=== PATIENT | female | born 2000 | race Caucasian/White ===

== ENCOUNTER → 2024-08-11 | Outpatient (CLI) | payer MEDICAID ==
[2024-08-11 10:45] LABS: Basophils # (auto) 0.1 10 ^3/uL (0-0.2); Eosinophils # (auto) 0.1 10 ^3/uL (0-0.8); Eosinophils % (auto) 1.2 % (0.0-7.0); Hematocrit 38.4 % (36.0-46.0); Hemoglobin 13.6 g/dL (12.2-16.2); Lymphocytes # (auto) 2.2 10 ^3/uL (0.4-5.4); Lymphocytes % (auto) 21.1 % (10.0-50.0); Mean Corpuscular Hemoglobin 31.4 pg (28.0-32.0); Mean Corpuscular Hgb Conc. 35.5 g/dL (32.0-36.0); Mean Corpuscular Volume 88.4 fL (80.0-100.0); Monocytes # (auto) 0.8 10 ^3/uL (0-1.3); Monocytes % (auto) 7.8 % (0.0-12.0); Neutrophils # (auto) 7.3 10 ^3/uL (1.6-8.6); Neutrophils % (auto) 68.9 % (37.0-80.0); Platelet Count (auto) 433 10^3/uL (140-450); Red Blood Cells 4.34 10^6/uL (4.0-5.20); Red Cell Distribution Width 12.6 % (11.8-14.3); White Blood Cell 10.6 10^3/uL (4.4-10.8)
[2024-08-11 11:02] LABS: Thyroid Stimulating Hormone 1.88 uIU/mL (0.55-4.78)
[2024-08-11 11:05] LABS: Amphetamine Screen, Urine Neg (NEGATIVE)
[2024-08-11 11:07] LABS: Alanine Aminotransferase 24 U/L (7-40); Albumin 4.3 g/dL (3.2-4.8); Alkaline Phosphatase 55 U/L (46-116); Anion Gap 10 (5-15); Aspartate Aminotransferase 17 U/L (13-40); BUN/Creatinine Ratio 9.4 (10.0-20.0); Cannabinoid Screen, Urine Neg (NEGATIVE); Carbon Dioxide 22 mmol/L (20-31); Chloride 105 mmol/L (98-107); Cholesterol 176 mg/dL (< 200); Glucose 94 mg/dL (74-106); Potassium 3.7 mmol/L (3.5-5.1); Sodium 137 mmol/L (136-145); Triglycerides 122 mg/dL (< 150)
[2024-08-11 11:08] LABS: Bilirubin, Total 0.4 mg/dL (0.2-1.0); Total Protein 7.2 g/dL (5.7-8.2)
[2024-08-11 11:09] LABS: Barbiturate Scree,Urine Neg (NEGATIVE); Benzodiazephine Screen, Urine Neg (NEGATIVE); Cocaine Screen, Urine Neg (NEGATIVE); Opiate Scree,Urine Neg (NEGATIVE); Phencyclidine Screen, Urine Neg (NEGATIVE)
[2024-08-11 11:10] LABS: Blood Urea Nitrogen 5 mg/dL (9-23); HDL Cholesterol 80 mg/dL (40-59)
[2024-08-11 11:11] LABS: Beta HCG, Quantitative 113799.4 mIU/mL (1.5-4.2)
[2024-08-11 11:20] LABS: LDL Cholesterol 89 mg/dL (< 100)
[2024-08-12 10:06] LABS: RPR Non Reactive (Non Reactive)
[2024-08-13 03:06] LABS: Rubella Antibodies, IgG 1.02 index (Immune >0.99); Varicella Zoster IgG Antibody Non Reactive (Non Reactive)
[2024-08-13 04:06] LABS: Chlamydia Trachomatis, NAA Negative (Negative); Neisseria gonorrhoeae, NAA Negative (Negative)
[2024-08-13 16:06] LABS: QuantiFERON-TB Gold Plus Negative (Negative)
== END | disposition home or self-care (01) ==
LOC: LAB 09:47
PROVIDERS: ATTEND Obstetrics & Gynecology
DX: Z34.00 Encounter for supervision of normal first pregnancy, unspecified trimester (principal); Z31.430 Encounter of female for testing for genetic disease carrier status for procreative management; Z36.0 Encounter for antenatal screening for chromosomal anomalies; N39.0 Urinary tract infection, site not specified
CPT/HCPCS: 36415; 80053; 80061; 80307; 83036; 84439; 84443; 84702; 85025; 86592; 86703; 86762; 86787; 86850; 86900; 86901; 87086; 87340; 87902

== ENCOUNTER → 2024-11-18 | Outpatient (CLI) | payer MEDICAID | END | disposition home or self-care (01) | LOC: LAB 09:09 | PROVIDERS: ATTEND Obstetrics & Gynecology | DX: Z34.00 Encounter for supervision of normal first pregnancy, unspecified trimester (principal); Z3A.00 Weeks of gestation of pregnancy not specified | CPT/HCPCS: 82951 ==

== ENCOUNTER 2024-12-17 09:06 | Observation (INO) | payer MEDICAID ==
[2024-12-17] MEDS ORDERED: PREN-96 PO (09:59)
--- NOTE | 2024-12-17 10:07 | DVH ---
BIOPHYSICAL PROFILE HISTORY: GDMA1 Comparison Study: None TECHNIQUE: Multiple real-time grayscale sonographic images through the gravid uterus of the fetus wi th duplex Doppler color flow and M-mode spectral analysis FINDINGS: BIOPHYSICAL PROFILE: breathing score: 2 movement score: 2 tone score: 2 Quantitative ANATOLY score: 2 (ANATOLY: 12.1 Cm.) Total score: 8 The cervix is not visualized Single live fetus in cephalic presentation. heart rate 150 beats per minute. Posterior placenta without previa or abruption. Possible accessory placental lobe seen anteriorly. IMPRESSION: Biophysical profile score: 8
--- NOTE | 2024-12-17 12:58 | DVHDS2 ---
Physician Discharge Progress N Final Diagnosis: gdm 31wks Operations or Procedures: Operations or Procedures nst reactive reviewed,sono Condition on Discharge: Good Disposition: Home Discharge Instructions: Diet: Consistent carbohydrate Activity: No Restrictions, As Tolerated Medications: na Follow Up Care: Specialist: 4d Discharge Statement: "Patient was advised to return to the ER or call 911 if any headaches, dizziness, shortness of breath, chest pain, abdominal pain, bleeding, fevers, or worsening of medical condition. Patient was counseled about treatment plan, medications, possible side effects, patientverbalized understanding. All questions were answered to the best of my ability. This discharge took greater then 30 minutes in planning, reviewing documentation, counseling the patient, and discussing with other team members." Visit Coding OBGYN Date of Service: December 17, 2024 Billing Provider: CHEYENNE MOONEY DO ASSISTANT OPERATIONS MANAGER Common Visit Codes: [id number] OBS CARE (HIGH) ASSISTANT OPERATIONS MANAGER Procedure Codes: 47512-47- NON-STRESS TEST CHEYENNE MOONEY DO December 17, 2024 12:58
== END 2024-12-17 10:25 | disposition home or self-care (01) ==
LOC: UNDOADMOB 09:06 → LDRP 09:06
PROVIDERS: ADMIT Obstetrics & Gynecology; ATTEND Obstetrics & Gynecology
DX: O24.419 Gestational diabetes mellitus in pregnancy, unspecified control (principal); Z3A.31 31 weeks gestation of pregnancy; Z79.899 Other long term (current) drug therapy
CPT/HCPCS: 59025; 76819; 81002; 82948; 82962; G0378

== ENCOUNTER 2024-12-24 07:16 | Observation (INO) | payer MEDICAID ==
[~2024-12-24 07:16] MED LIST: PREN-96 PO
--- NOTE | 2024-12-24 11:02 | DVH ---
Procedure: US BIOPHYSICAL PROFILE 12/24/2024 09:41 AM Indication: GDMA1 Comparison: US BIOPHYSICAL PROFILE on DOS: 12/17/24 Technique: Sonogram of gravid uterus utilizing grayscale and color techniques. FINDINGS: Single living intrauterine gestation. Presentation: Cephalic Placenta: Posterior, no evidence of previa heart rate: 142 bpm ANATOLY: 13.2 cm, DVP: 3.4 cm Maternal cervix: Closed, measuring 3.6 cm in length in the transabdominal study Biophysical Profile: breathing score: 2 movement score: 2 tone: 2 Quantitative ANATOLY score: 2 Total score: 8/8 IMPRESSION: 1. Single living as above. 2. Biophysical profile score: 8/8.
--- NOTE | 2024-12-24 12:25 | DVHDS2 ---
Physician Discharge Progress N Final Diagnosis: gdm 32wks Operations or Procedures: Operations or Procedures nst reactive reviwed,sono Condition on Discharge: Good Disposition: Home Discharge Instructions: Diet: Consistent carbohydrate Activity: No Restrictions, As Tolerated Medications: na Follow Up Care: Specialist: 4d Discharge Statement: "Patient was advised to return to the ER or call 911 if any headaches, dizziness, shortness of breath, chest pain, abdominal pain, bleeding, fevers, or worsening of medical condition. Patient was counseled about treatment plan, medications, possible side effects, patientverbalized understanding. All questions were answered to the best of my ability. This discharge took greater then 30 minutes in planning, reviewing documentation, counseling the patient, and discussing with other team members." Visit Coding OBGYN Date of Service: December 24, 2024 Billing Provider: CHEYENNE MOONEY DO CARROTER Common Visit Codes: [id number] OBS CARE (HIGH) CARROTER Procedure Codes: 93481-80- NON-STRESS TEST CHEYENNE MOONEY DO December 24, 2024 12:25
== END 2024-12-24 10:43 | disposition home or self-care (01) ==
LOC: LDRP 09:09
PROVIDERS: ADMIT Obstetrics & Gynecology; ATTEND Obstetrics & Gynecology
DX: O24.419 Gestational diabetes mellitus in pregnancy, unspecified control (principal); Z3A.32 32 weeks gestation of pregnancy; Z79.899 Other long term (current) drug therapy; Z91.040 Latex allergy status
CPT/HCPCS: 59025; 76819; 81002; 82948; 82962; 94760; G0378

== ENCOUNTER 2024-12-31 05:38 | Observation (INO) | payer MEDICAID ==
[~2024-12-31] VITALS: Ht 149.9 cm; Wt 73.9 kg
--- NOTE | 2024-12-31 10:26 | DVH ---
BIOPHYSICAL PROFILE HISTORY: GDMA1 TECHNIQUE: Multiple transabdominal real-time grayscale sonographic images through the gravid uterus of the fetus with duplex Doppler color flow and M-mode spectral analysis FINDINGS: BIOPHYSICAL PROFILE: breathing score: 2 movement score: 2 tone score: 2 Quantitative ANATOLY score: 2 (ANATOLY: 14 Cm.) Total score: 8 The cervix WAS NOT SEEN Single live fetus in cephalic presentation. heart rate 154 beats per minute. Grade I posterior placenta without previa or abruption IMPRESSION: Biophysical profile score: 8/8.
--- NOTE | 2025-01-02 14:20 | DVHDS2 ---
Physician Discharge Progress N Final Diagnosis: gdm 33wks Operations or Procedures: Operations or Procedures nst reactive reviewed Condition on Discharge: Good Disposition: Home Discharge Instructions: Diet: Consistent carbohydrate Activity: Light activity Medications: na Follow Up Care: Specialist: 1w Discharge Statement: "Patient was advised to return to the ER or call 911 if any headaches, dizziness, shortness of breath, chest pain, abdominal pain, bleeding, fevers, or worsening of medical condition. Patient was counseled about treatment plan, medications, possible side effects, patientverbalized understanding. All questions were answered to the best of my ability. This discharge took greater then 30 minutes in planning, reviewing documentation , counseling the patient, and discussing with other team members." Visit Coding OBGYN Date of Service: Dec 31, 2024 Billing Provider: CHEYENNE MOONEY DO CLAIM ATTORNEY Common Visit Codes: [id number] OBS CARE (HIGH) CLAIM ATTORNEY Procedure Codes: 50530-34- NON-STRESS TEST CHEYENNE MOONEY DO Jan 02, 2025 14:19
== END 2024-12-31 10:55 | disposition home or self-care (01) ==
LOC: LDRP 09:08 → UNDOADMOB 09:08 → LDRP 09:15
PROVIDERS: ADMIT Obstetrics & Gynecology; ATTEND Obstetrics & Gynecology
DX: O24.419 Gestational diabetes mellitus in pregnancy, unspecified control (principal); Z3A.33 33 weeks gestation of pregnancy; Z79.899 Other long term (current) drug therapy
CPT/HCPCS: 59025; 76819; 81002; 82948; 94760; G0378

== ENCOUNTER 2025-01-07 06:44 | Observation (INO) | payer MEDICAID ==
--- NOTE | 2025-01-07 10:26 | DVH ---
BIOPHYSICAL PROFILE HISTORY: gdma1 TECHNIQUE: Multiple transabdominal real-time grayscale sonographic images through the gravid uterus of the fetus with duplex Doppler color flow and M-mode spectral analysis FINDINGS: BIOPHYSICAL PROFILE: breathing score: 2 movement score: 2 tone score: 2 Quantitative ANATOLY score: 2 (ANATOLY: 15 Cm.) Total score: 8 The cervix was not seen Single live fetus in cephalic presentation. heart rate 149 beats per minute. Grade II posterior placenta without previa or abruption IMPRESSION: Biophysical profile score: 8
--- NOTE | 2025-01-07 13:00 | DVHDS2 ---
Physician Discharge Progress N Final Diagnosis: IUP AT 34WKS GDM Operations or Procedures: Operations or Procedures NST REACTIVE FAUSTINA POSEY Commentary: Commentary NST REACTIVE REVFAUSTINA BUSTOS Condition on Discharge: Good Disposition: Home Discharge Instructions: Diet: Consistent carbohydrate Activity: No Restrictions, As Tolerated Medications: NA Follow Up Care: Specialist: 1W Discharge Statement: "Patient was advised to return to the ER or call 911 if any headaches, dizziness, shortness of breath, chest pain, abdominal pain, bleeding, fevers, or worsening of medical condition. Patient was counseled about treatment plan, medications, possible side effects, patientverbalized understanding. All questions were answered to the best of my ability. This discharge took greater then 30 minutes in planning, reviewing documentation, counseling the patient, and discussing with other team members." Visit Coding OBGYN Date of Service: Jan 07, 2025 Billing Provider: CHEYENNE MOONEY DO PETROLEUM PLANT OPERATOR Common Visit Codes: [id number] OBS CARE (HIGH) PETROLEUM PLANT OPERATOR Procedure Codes: 51273-39- NON-STRESS TEST CHEYENNE MOONEY DO Jan 07, 2025 13:00
== END 2025-01-07 10:27 | disposition home or self-care (01) ==
LOC: UNDOADMOB 09:03 → LDRP 09:03
PROVIDERS: ADMIT Obstetrics & Gynecology; ATTEND Obstetrics & Gynecology
DX: O24.419 Gestational diabetes mellitus in pregnancy, unspecified control (principal); Z3A.34 34 weeks gestation of pregnancy; Z79.899 Other long term (current) drug therapy
CPT/HCPCS: 59025; 76819; 81002; 82948; 82962; 94760; G0378

== ENCOUNTER 2025-01-13 10:31 | Outpatient (CLI) | payer MEDICAID ==
[2025-01-13 11:02] LABS: Basophils # (auto) 0 10 ^3/uL (0-0.2); Basophils % (auto) 0.3 % (0.0-2.0); Eosinophils # (auto) 0.1 10 ^3/uL (0-0.8); Eosinophils % (auto) 1.6 % (0.0-7.0); Hematocrit 34.8 % (36.0-46.0); Lymphocytes % (auto) 22.4 % (10.0-50.0); Mean Corpuscular Hemoglobin 30.3 pg (28.0-32.0); Mean Corpuscular Hgb Conc. 34.6 g/dL (32.0-36.0); Mean Corpuscular Volume 87.7 fL (80.0-100.0); Monocytes # (auto) 0.8 10 ^3/uL (0-1.3); Monocytes % (auto) 9.3 % (0.0-12.0); Neutrophils # (auto) 5.9 10 ^3/uL (1.6-8.6); Neutrophils % (auto) 66.4 % (37.0-80.0); Nucleated Red Blood Cells % 0.1 %; Platelet Count (auto) 342 10^3/uL (140-450); Red Blood Cells 3.97 10^6/uL (4.0-5.20); White Blood Cell 8.9 10^3/uL (4.4-10.8)
[2025-01-14 21:07] LABS: Chlamydia Trachomatis, NAA Negative (Negative); Neisseria gonorrhoeae, NAA Negative (Negative)
== END 2025-01-13 17:00 | disposition home or self-care (01) ==
LOC: LAB 10:31
PROVIDERS: ATTEND Obstetrics & Gynecology
DX: Z34.03 Encounter for supervision of normal first pregnancy, third trimester (principal); Z3A.35 35 weeks gestation of pregnancy; Z72.51 High risk heterosexual behavior; Z79.899 Other long term (current) drug therapy
CPT/HCPCS: 36415; 83036; 85025; 86780

== ENCOUNTER 2025-01-14 07:38 | Observation (INO) | payer MEDICAID ==
[~2025-01-14] VITALS: Ht 149.9 cm; Wt 73.9 kg
--- NOTE | 2025-01-14 09:50 | DVH ---
BIOPHYSICAL PROFILE HISTORY: GDMA1 TECHNIQUE: Multiple transabdominal real-time grayscale sonographic images through the gravid uterus o f the fetus with duplex doppler color flow and M-mode spectral analysis FINDINGS: BIOPHYSICAL PROFILE: breathing score: 2 movement score: 2 tone score: 2 Quantitative ANATOLY score: 2 (ANATLOY: 14.2 cm.) Total score: 8/8 Single live fetus in cephalic presentation. heart rate 145 beats per minute. Posterior placenta without previa or abruption Biophysical profile score 8/8 corresponding to an KAYLAN of 02/13/25 IMPRESSION: Biophysical profile score: 8/8
[2025-01-14] MEDS ORDERED: LACTATED RINGER'S 1,000 ML IV ONE (10:00)
[2025-01-14] MEDS: TERBUTALINE SULFATE 1 MG/ML 1ML VIAL SC SCH (10:23)
--- NOTE | 2025-01-14 14:00 | DVHDS2 ---
Physician Discharge Progress N Final Diagnosis: gdm 35wks Operations or Procedures: Operations or Procedures nst reactive reviwed,sono Condition on Discharge: Good Disposition: Home Discharge Instructions: Diet: Consistent carbohydrate Activity: Light activity Medications: na Follow Up Care: Specialist: 1w Discharge Statement: "Patient was advised to return to the ER or call 911 if any headaches, dizziness, shortness of breath, chest pain, abdominal pain, bleeding, fevers, or worsening of medical condition. Patient was counseled about treatment plan, medications, possible side effects, patientverbalized understanding. All questions were answered to the best of my ability. This discharge took greater then 30 minutes in planning, reviewing document ation, counseling the patient, and discussing with other team members." Visit Coding OBGYN Date of Service: Jan 14, 2025 Billing Provider: CHEYENNE MOONEY DO CUTTING MACHINE TENDER DECORATIVE Common Visit Codes: [id number] OBS CARE (HIGH) CUTTING MACHINE TENDER DECORATIVE Procedure Codes: 49770-22- NON-STRESS TEST CHEYENNE MOONEY DO Jan 14, 2025 14:00
== END 2025-01-14 11:38 | disposition home or self-care (01) ==
LOC: LDRP 09:05 → UNDOADMOB 09:05 → LDRP 09:12 → UNDODISOB 11:38
PROVIDERS: ADMIT Obstetrics & Gynecology; ATTEND Obstetrics & Gynecology
DX: O24.419 Gestational diabetes mellitus in pregnancy, unspecified control (principal); Z3A.35 35 weeks gestation of pregnancy; Z79.899 Other long term (current) drug therapy
CPT/HCPCS: 59025; 76819; 81002; 82948; 82962; 94760; 96360; 96361; 96372; G0378; J3105

== ENCOUNTER 2025-01-21 08:57 | Observation (INO) | payer MEDICAID ==
--- NOTE | 2025-01-21 10:06 | DVH ---
BIOPHYSICAL PROFILE HISTORY: GDMA1 Comparison Study: US BIOPHYSICAL PROFILE on DOS: 01/14/25, US BIOPHYSICAL PROFILE on DOS: 01/07/25, US BIOPHYSICAL PROFILE on DOS: 12/31/24, US BIOPHYSICAL PROFILE on DOS: 12/24/24, US BIOPHYSICAL PROFILE on DOS: 12/17/24 TECHNIQUE: Multiple real-time grayscale sonographic images through the gravid uterus of the fetus wi th duplex Doppler color flow and M-mode spectral analysis FINDINGS: BIOPHYSICAL PROFILE: breathing score: 2 movement score: 2 tone score: 2 Quantitative ANATOLY score: 2 (ANATOLY: 14.4 Cm.) Total score: 8 The cervix is not visualized Single live fetus in cephalic presentation. heart rate 161 beats per minute. Posterior placenta without previa or abruption IMPRESSION: Biophysical profile score: 8
--- NOTE | 2025-01-21 13:05 | DVHDS2 ---
Physician Discharge Progress N Final Diagnosis: 36wks gdm Operations or Procedures: Operations or Procedures nst reactive reviwed,sono Condition on Discharge: Good Disposition: Home Discharge Instructions: Diet: Consistent carbohydrate Activity: Light activity Medications: na Follow Up Care: Specialist: 2d Discharge Statement: "Patient was advised to return to the ER or call 911 if any headaches, dizziness, shortness of breath, chest pain, abdominal pain, bleeding, fevers, or worsening of medical condition. Patient was counseled about treatment plan, medications, possible side effects, patientverbalized understanding. All questions were answered to the best of my ability. This discharge took greater then 30 minutes in planning, reviewing documenta tion, counseling the patient, and discussing with other team members." Visit Coding OBGYN Date of Service: Jan 21, 2025 Billing Provider: CHEYENNE MOONEY DO MANAGER BRIDGE Common Visit Codes: [id number] OBS CARE (HIGH) MANAGER BRIDGE Procedure Codes: 26230-26- NON-STRESS TEST CHEYENNE MOONEY DO Jan 21, 2025 13:05
== END 2025-01-21 10:21 | disposition home or self-care (01) ==
LOC: LDRP 08:57
PROVIDERS: ADMIT Obstetrics & Gynecology; ATTEND Obstetrics & Gynecology
DX: O24.419 Gestational diabetes mellitus in pregnancy, unspecified control (principal); Z98.890 Other specified postprocedural states; Z79.899 Other long term (current) drug therapy; Z3A.36 36 weeks gestation of pregnancy
CPT/HCPCS: 59025; 76819; 81002; 82948; 82962; 94760; G0378

== ENCOUNTER 2025-01-22 16:27 | Observation (INO) | payer MEDICAID ==
--- NOTE | 2025-01-22 19:02 | DVH ---
US OB LIMITED CLINICAL HISTORY: possible SROM, ANATOLY check COMPARISON: 01/21/2025 TECHNIQUE: Real-time grayscale, color flow and M-mode imaging of the gravid uterus is performed. FINDINGS: Single living intrauterine gestation. Cephalic presentation. heart rate 131 beats per minute. Placenta is fundal. The cervix measures approximately 3.2 cm in length and appears closed at this ti me. The placenta is fundal. No definite evidence of abruption or previa. Amniotic fluid index 11.9 cm. IMPRESSION: Single living intrauterine as above.
--- NOTE | 2025-01-23 13:46 | DVHDS2 ---
Physician Discharge Progress N Final Diagnosis: rom ruled out 36wks,gdm Operations or Procedures: Operations or Procedures nst reactive reviwed,sono Condition on Discharge: Good Disposition: Home Discharge Instructions: Diet: Consistent carbohydrate Activity: No Restrictions, As Tolerated Medications: na Follow Up Care: Specialist: 1w Discharge Statement: "Patient was advised to return to the ER or call 911 if any headaches, dizziness, shortness of breath, chest pain, abdominal pain, bleeding, fevers, or worsening of medical condition. Patient was counseled about treatment plan, medications, possible side effects, patientverbalized understanding. All questions were answered to the best of my ability. This discharge took greater then 30 minutes in planning, reviewing documentation, counseling the patient, and discussing with other team members." Visit Coding OBGYN Date of Service: Jan 22, 2025 Billing Provider: CHEYENNE MOONEY DO DELIVERY STOCK CLERK Common Visit Codes: [id number] OBS CARE (HIGH) DELIVERY STOCK CLERK Procedure Codes: 83904-18- NON-STRESS TEST CHEYENNE MOONEY DO Jan 23, 2025 13:46
== END 2025-01-22 18:24 | disposition home or self-care (01) ==
LOC: LDRP 16:27
PROVIDERS: ADMIT Obstetrics & Gynecology; ATTEND Obstetrics & Gynecology
DX: O24.419 Gestational diabetes mellitus in pregnancy, unspecified control (principal); Z3A.36 36 weeks gestation of pregnancy; Z79.899 Other long term (current) drug therapy; Z98.890 Other specified postprocedural states
CPT/HCPCS: 59025; 76815; 81002; 82948; 82962; 84112; 94760; G0378

== ENCOUNTER 2025-01-28 06:22 | Observation (INO) | payer MEDICAID ==
--- NOTE | 2025-01-28 11:35 | DVH ---
BIOPHYSICAL PROFILE HISTORY: GDMA1 Comparison Study: US BIOPHYSICAL PROFILE on DOS: 01/21/25, US BIOPHYSICAL PROFILE on DOS: 01/14/25, US BIOPHYSICAL PROFILE on DOS: 01/07/25, US BIOPHYSICAL PROFILE on DOS: 12/31/24, US BIOPHYSICAL PROFILE on DOS: 12/24/24 TECHNIQUE: Multiple real-time grayscale sonographic images through the gravid uterus of the fetus wi th duplex Doppler color flow and M-mode spectral analysis FINDINGS: BIOPHYSICAL PROFILE: breathing score: 2 movement score: 2 tone score: 2 Quantitative ANATOLY score: 2 (ANATOLY: 14.4 Cm.) Total score: 8 The cervix is not visualized Single live fetus in cephalic presentation. heart rate 139.81 beats per minute. Grade 2, posterior placenta without previa or abruption. Accessory lobe again noted. IMPRESSION: Biophysical profile score: 8
--- NOTE | 2025-01-30 08:34 | DVHDS2 ---
Physician Discharge Progress N Final Diagnosis: gdm 37wks Operations or Procedures: Operations or Procedures nst reactive reviwed,sono Condition on Discharge: Good Disposition: Home Discharge Instructions: Diet: Consistent carbohydrate Activity: No Restrictions, As Tolerated Medications: na Follow Up Care: Specialist: 4d Discharge Statement: "Patient was advised to return to the ER or call 911 if any headaches, dizziness, shortness of breath, chest pain, abdominal pain, bleeding, fevers, or worsening of medical condition. Patient was counseled about treatment plan, medications, possible side effects, patientverbalized understanding. All questions were answered to the best of my ability. This discharge took greater then 30 minutes in planning, reviewing documentation, counseling the patient, and discussing with other team members." Visit Coding OBGYN Date of Service: Jan 28, 2025 Billing Provider: CHEYENNE MOONEY DO INSTALLER HELPER Common Visit Codes: [id number] INP/OBS CARE (HIGH) INSTALLER HELPER Procedure Codes: 94087-59- NON-STRESS TEST CHEYENNE MOONEY DO Jan 30, 2025 08:34
== END 2025-01-28 11:50 | disposition home or self-care (01) ==
LOC: LDRP 10:00 → UNDOADMOB 10:00 → LDRP 10:07
PROVIDERS: ADMIT Obstetrics & Gynecology; ATTEND Obstetrics & Gynecology
DX: O24.419 Gestational diabetes mellitus in pregnancy, unspecified control (principal); Z3A.37 37 weeks gestation of pregnancy; Z79.899 Other long term (current) drug therapy; Z98.890 Other specified postprocedural states
CPT/HCPCS: 59025; 76819; 81002; 82948; 82962; 94760; G0378

== ENCOUNTER 2025-02-04 08:18 | Observation (INO) | payer MEDICAID ==
--- NOTE | 2025-02-04 11:20 | DVH ---
BIOPHYSICAL PROFILE HISTORY: GDMA1 Comparison Study: US BIOPHYSICAL PROFILE on DOS: 01/28/25, US BIOPHYSICAL PROFILE on DOS: 01/21/25, US B IOPHYSICAL PROFILE on DOS: 01/14/25, US BIOPHYSICAL PROFILE on DOS: 01/07/25, US BIOPHYSICAL PROFILE on DOS: 12/31/24 TECHNIQUE: Multiple real-time grayscale sonographic images through the gravid uterus of the fetus wi th duplex Doppler color flow and M-mode spectral analysis FINDINGS: BIOPHYSICAL PROFILE: breathing score: 2 movement score: 2 tone score: 2 Quantitative ANATOLY score: 2 (ANATOLY: 11.5, previously 14.4 Cm.) Total score: 8 The cervix is not visualized Single live fetus in cephalic presentation. heart rate 141 beats per minute. Posterior/fundal placenta without previa or abruption IMPRESSION: Biophysical profile score: 8
--- NOTE | 2025-02-07 07:22 | DVHDS2 ---
Physician Discharge Progress N Final Diagnosis: gdm 38wks Operations or Procedures: Operations or Procedures nst reactive reviwed,sono Condition on Discharge: Good Disposition: Home Discharge Instructions: Diet: Consistent carbohydrate Activity: Light activity Medications: na Follow Up Care: Specialist: 1w Discharge Statement: "Patient was advised to return to the ER or call 911 if any headaches, dizziness, shortness of breath, chest pain, abdominal pain, bleeding, fevers, or worsening of medical condition. Patient was counseled about treatment plan, medications, possible side effects, patientverbalized understanding. All questions were answered to the best of my ability. This discharge took greater then 30 minutes in planning, reviewing documenta tion, counseling the patient, and discussing with other team members." Visit Coding OBGYN Date of Service: Feb 04, 2025 Billing Provider: CHEYENNE MOONEY DO TOP COLLAR BASTER Common Visit Codes: [id number] OBS CARE (HIGH) TOP COLLAR BASTER Procedure Codes: 64250-91- NON-STRESS TEST CHEYENNE MOONEY DO Feb 07, 2025 07:22
== END 2025-02-04 11:57 | disposition home or self-care (01) ==
LOC: LDRP 09:54
PROVIDERS: ADMIT Obstetrics & Gynecology; ATTEND Obstetrics & Gynecology
DX: O24.419 Gestational diabetes mellitus in pregnancy, unspecified control (principal); Z3A.38 38 weeks gestation of pregnancy; Z79.899 Other long term (current) drug therapy
CPT/HCPCS: 59025; 76819; 81002; 82948; 82962; 94760; G0378

== ENCOUNTER 2025-02-07 21:48 | Inpatient (IN) | payer MEDICAID ==
[~2025-02-07] VITALS: Ht 149.9 cm; Wt 75.7 kg
[2025-02-07] MEDS ORDERED: NALBUPHINE HCL 10 MG/1ml INJECTION IM PRN (22:15)
[2025-02-07] MEDS ORDERED: NALBUPHINE HCL 10 MG/1ml INJECTION IV PRN (22:15)
[2025-02-07 22:49] LABS: Hematocrit 37.8 % (36.0-46.0); Hemoglobin 12.9 g/dL (12.2-16.2); Mean Corpuscular Hemoglobin 30.0 pg (28.0-32.0); Mean Corpuscular Volume 87.8 fL (80.0-100.0); Nucleated Red Blood Cells % 0.0 %
[2025-02-07 22:54] LABS: Urine Protein, UAD Negative (Negative)
[2025-02-07 23:03] LABS: INR 0.92 (0.9-1.15); Partial Thromboplastin Time 25.4 SEC (24.5-34.5); Prothrombin Time 9.8 sec (9.3-11.8)
[2025-02-07 23:06] LABS: Albumin 4.2 g/dL (3.2-4.8); Anion Gap 11 (5-15); BUN/Creatinine Ratio 13.3 (10.0-20.0); Bilirubin, Total 0.5 mg/dL (0.2-1.0); Calcium 9.7 mg/dL (8.7-10.4); Carbon Dioxide 20 mmol/L (20-31); Chloride 107 mmol/L (98-107); Glucose 89 mg/dL (74-106); Potassium 4.2 mmol/L (3.5-5.1); Sodium 138 mmol/L (136-145); Total Protein 6.9 g/dL (5.7-8.2)
[2025-02-07 23:13] LABS: Amphetamine Screen, Urine Neg (NEGATIVE); Barbiturate Scree,Urine Neg (NEGATIVE); Benzodiazephine Screen, Urine Neg (NEGATIVE); Cocaine Screen, Urine Neg (NEGATIVE); Opiate Scree,Urine Neg (NEGATIVE); Phencyclidine Screen, Urine Neg (NEGATIVE)
[2025-02-07 23:13] LABS: Alanine Aminotransferase < 9 U/L (7-40); Alkaline Phosphatase 208 U/L (46-116); Blood Urea Nitrogen 6 mg/dL (9-23)
[2025-02-07] MEDS: LACTATED RINGER'S 1,000 ML IV SCH (23:20)
[2025-02-07] MEDS: NALOXONE HCL 0.4 MG/ML VIAL IV ONE (23:45)
[2025-02-07 23:49] LABS: Cannabinoid Screen, Urine Neg (NEGATIVE)
[2025-02-08] MEDS: WITCH HAZEL-GLYCERIN PAD TOP PRN (01:12)
[2025-02-08] MEDS: PHISODERM TOP SOLN 240ML BTL TOP PRN (01:12)
[2025-02-08] MEDS: DERMOPLAST 60ML BOTTLE TOP PRN (01:12)
[2025-02-08] MEDS ORDERED: ACCU-CHEK COMFORT CURVE STRIP VI SCH (02:00)
[2025-02-08] MEDS: fentaNYL CITRATE 100 MCG/2 ML VL IV ONE (02:35)
[2025-02-08] MEDS: ROPIVACAINE HCL 100 ML ONE ×3 (02:36→22:47)
[2025-02-08] MEDS: LACTATED RINGER'S 1,000 ML IV ONE (05:54)
--- NOTE | 2025-02-08 09:24 | DVHHP2 ---
OB CC & HPI Date Date of Admission: Feb 13, 2025 Patient Identification: : 1 Para: 0 EDC: Feb 08, 2025 EGA: 39 + Chief Complaints: Reason for admission: induction of labor Indication for induction: other (GDM A1) Admission Nurse Assessment Rev: Yes (A1 sugars is well controlled) Past Medical History Cardiac: No pertinent Hx Pulmonary: No pertinent Hx Central Nervous System: No pertinent Hx GI: No pertinent Hx Hemotology/Oncology: No pertinent Hx Hepatobiliary: No pertinent Hx Psychiatric: No pertinent Hx Musculoskeletal: No pertinent Hx Rheumotologic: No pertinent Hx Infectious Disease: No peritnent Hx ENT: No pertinent Hx Renal/: No pertinent Hx Endocrine: No pertinent Hx Dermatology: No pertinent Hx OB History OB History Care: Good Care Ultrasounds: Normal mid trimester US Obstetrical Complications: Gestational Diabetes Medical Complications: None Allergies: Coded Allergies: Latex (Verified Allergy, Unknown, 12/17/24) Home Meds Reported Medications Vit W/ Ferrous Fumara ( One Daily) Daily Tab, 1 TAB PO DAILY, #90 TAB 3 Refills 12/17/24 Current Medications Current Medications Medications (Trade) Dose Ordered Sig/Gelacio Route PRN Reason Start Time Stop Time Status Last Admin Lactated Ringer's 1,000 ml @ 125 mls/hr Q8H IV 02/07/25 22:15 02/08/25 05:55 Nalbuphine HCl (Nubain) 10 mg Q4HP PRN IM MODERATE PAIN (4-6 PAIN SCALE) 02/07/25 22:15 Nalbuphine HCl (Nubain) 10 mg Q4HP PRN IV MODERATE PAIN (4-6 PAIN SCALE) 02/07/25 22:15 Diagnostic Test (Pha) (Accu-Chek Comfort Curve T) 1 strip Q4HR 02/08/25 02:00 Witelena Lauel (Tucks) 1 pad PRN PRN TOP PERINEAL AREA DISCOMFORT 02/07/25 22:15 02/08/25 01:12 Sodium Lauryl Sulfate (Phisoderm) 240 ml PRN PRN TOP PERINEAL AREA DISCOMFORT 02/07/25 22:15 02/08/25 01:12 Benzocaine (Dermoplast) 1 applic PRN PRN TOP PERINEAL AREA DISCOMFORT 02/07/25 22:15 02/08/25 01:12 Lidocaine HCl (Xylocaine) 20 ml ONCE PRN IJ PERINEAL AREA DISCOMFORT 02/07/25 22:15 Misoprostol (Cytotec) 50 mcg Q4HPRN PRN PO CERVICAL RIPENING 02/08/25 00:45 02/08/25 01:12 Family & Social History Family/Social History Blood Type: A+ Rubella: immune RPR/VDRL: Negative GBS Status: Negative HBsAG: Negative Review of Systems Constitutional: No symptom reported Ears, Nose, & Throat: No symptom reported Eyes: No symptom reported Pulmonary/Respiratory: No symptom reported Cardiovascular: No symptom reported Gastrointestinal: No symptom reported Genitourinary: No symptom reported Musculoskeletal: No symptom reported Skin: No symptom reported Psychiatric: No symptom reported Endocrine: No symptom reported Hemotologic/Lymphatic: No symptom reported OB Admission Exam Physical Exam Vitals: Vital Signs Date Time Temp Pulse Resp B/P (MAP) Pulse Ox O2 Delivery O2 Flow Rate FiO2 02/08/25 02:35 119/60 HEENT: TMs Normal, Fontanelles Normal, Nasal Mucosa Normal, Eyes non-injected, Oropharynx Normal, PERRLA, Moist Membranes, EOMI Heart: Rhythm Normal Lungs: Clear Abdomen: Gravid Extremities: Normal Reflexes: Normal Cervical Dilatation: Fingertip Effacement: 50% Station: -3 Membranes: Intact Heart Rate: 130's Accelerations: Accelerations Present Decelerations: No Decelerations Short Term Variability: Present Contractions on Admission: None Intensity: Mild OB Plan Plan Admitting Diagnosis: Induction of labor for GDMA1 Plan: Induction Other Plan: Cytotec induction Risks benefits complications alternatives discussed not limited to increased risks of section. Risks benefit ratio discussed all questions answered and encouraged. SHIRA HATHAWAY DO Feb 08, 2025 09:24
--- NOTE | 2025-02-08 10:29 | DVHPN2 ---
CNM Labor Progress Note Date and Time Seen Date Seen: Feb 08, 2025 Time Seen: 08:30 Subjective Patient reports: No new complaints Subjective Comment Pt resting comfortably in bed Objective Vital Signs VSS, see chart Monitoring Method Monitoring Method: External Heart Rate Heart Rate Baseline: 140 Heart Rate Variability: Moderate Presence of FHR Accelerations: Yes Presence of FHR Decelerations: No Are all 5 Components of the FH: Yes Contractions Contractions Frequency: Other (Q 1-3 min) Duration of Contraction: 80 Contractions Intensity: Moderate Contractions Resting Tone: Relaxed Membranes Membranes: Intact Vaginal Exam Vag Exam Deferred: No (Cooks balloon placed with 60mL uterine, and 60mL vaginal of sterile water) Vaginal Exam Dilation: 1 Vaginal Exam Effacement: 30 Vaginal Exam Station: -2 Vaginal Exam Presentation: VTX Vaginal Exam Show: None Medications Medications - Pitocin: No Medications - Pain Medications: PRN Medication - Epidural: Yes Medication - Other s/p Cytotec PO x1 dose Lab Results Lab Results Vital Signs Date Time Temp Pulse Resp B/P (MAP) Pulse Ox O2 Delivery O2 Flow Rate FiO2 02/08/25 02:35 119/60 Current Medications Medications (Trade) Dose Ordered Sig/Gelacio Start Time Stop Time Status Last Admin Dose Admin Lactated Ringer's 1,000 ml @ 125 mls/hr Q8H 02/07/25 22:15 02/08/25 05:55 125 MLS/HR Nalbuphine HCl (Nubain) 10 mg Q4HP PRN 02/07/25 22:15 Nalbuphine HCl (Nubain) 10 mg Q4HP PRN 02/07/25 22:15 Diagnostic Test (Pha) (Accu-Chek Comfort Curve T) 1 strip Q4HR 02/08/25 02:00 Cody Saab (Tucks) 1 pad PRN PRN 02/07/25 22:15 02/08/25 01:12 1 PAD Sodium Lauryl Sulfate (Phisoderm) 240 ml PRN PRN 02/07/25 22:15 02/08/25 01:12 240 ML Benzocaine (Dermoplast) 1 applic PRN PRN 02/07/25 22:15 02/08/25 01:12 1 APPLIC Lidocaine HCl (Xylocaine) 20 ml ONCE PRN 02/07/25 22:15 Naloxone HCl (Narcan) 0.2 mg PRN ONCE 02/07/25 23:45 02/07/25 23:46 DC Ephedrine Sulfate (ePHEDrine SULFATE) 10 mg PRN ONCE 02/07/25 23:45 02/07/25 23:46 DC Fentanyl Citrate 200 mcg ONCE ONCE 02/07/25 23:45 02/07/25 23:46 DC 02/08/25 02:35 200 MCG Lactated Ringer's 1,000 ml @ 1,000 mls/hr Q1H ONCE 02/07/25 23:45 02/08/25 00:44 DC 02/08/25 05:54 1,000 MLS/HR Misoprostol (Cytotec) 50 mcg Q4HPRN PRN 02/08/25 00:45 02/08/25 01:12 50 MCG Laboratory Tests Test 02/08/25 06:22 02/07/25 22:29 02/07/25 22:21 Range/Units POC Glucose 82 70-106 mg/dl White Blood Count 10.2 4.4-10.8 10^3/uL Red Blood Count 4.30 4.0-5.20 10^6/uL Hemoglobin 12.9 12.2-16.2 g/dL Hematocrit 37.8 36.0-46.0 % Mean Corpuscular Volume 87.8 80.0-100.0 fL Mean Corpuscular Hemoglobin 30.0 28.0-32.0 pg Mean Corpuscular Hemoglobin Concent 34.2 32.0-36.0 g/dL Red Cell Distribution Width 14.3 11.8-14.3 % Platelet Count 303 140-450 10^3/uL Mean Platelet Volume 7.7 6.9-10.8 fL Neutrophils (%) (Auto) 62.8 37.0-80.0 % Lymphocytes (%) (Auto) 23.8 10.0-50.0 % Monocytes (%) (Auto) 10.8 0.0-12.0 % Eosinophils (%) (Auto) 2.1 0.0-7.0 % Basophils (%) (Auto) 0.5 0.0-2.0 % Neutrophils # (Auto) 6.4 1.6-8.6 10 ^3/uL Lymphocytes # (Auto) 2.4 0.4-5.4 10 ^3/uL Monocytes # (Auto) 1.1 0-1.3 10 ^3/uL Eosinophils # (Auto) 0.2 0-0.8 10 ^3/uL Basophils # (Auto) 0.1 0-0.2 10 ^3/uL Nucleated Red Blood Cells 0.0 % Prothrombin Time 9.8 9.3-11.8 sec Prothrombin Time INR 0.92 0.9-1.15 Activated Partial Thromboplast Time 25.4 24.5-34.5 SEC Sodium Level 138 136-145 mmol/L Potassium Level 4.2 3.5-5.1 mmol/L Chloride Level 107 98-107 mmol/L Carbon Dioxide Level 20 20-31 mmol/L Anion Gap 11 5-15 Blood Urea Nitrogen 6 L 9-23 mg/dL Creatinine 0.45 L 0.550-1.02 mg/dL Glomerular Filtration Rate Calc 139 >90 mL/min BUN/Creatinine Ratio 13.3 10.0-20.0 Serum Glucose 89 74-106 mg/dL Calcium Level 9.7 8.7-10.4 mg/dL Total Bilirubin 0.5 0.2-1.0 mg/dL Aspartate Amino Transferase (AST) 16 13-40 U/L Alanine Aminotransferase (ALT) < 9 7-40 U/L Alkaline Phosphatase 208 H 46-116 U/L Total Protein 6.9 5.7-8.2 g/dL Albumin 4.2 3.2-4.8 g/dL Treponema pallidum Antibody Non-reactive Negative Hepatitis C Antibody Pending Urine Color Colorless Yellow Urine Clarity Clear Clear Urine pH 6.0 5.0-9.0 Urine Specific [place] 1.006 1.001-1.035 Urine Protein Negative Negative Urine Ketones Negative Negative Urine Blood Negative Negative /uL Urine Nitrite Negative Negative Urine Bilirubin Negative Negative Urine Urobilinogen Normal Negative mg/dL Urine Leukocyte Esterase Negative Negative /uL Urine RBC None seen 0 - 4 /hpf Urine Microscopic WBC < 1 0-5 /HPF Urine Squamous Epithelial Cells Few <5 /hpf Urine Bacteria Few H None Seen /hpf Urine Glucose Normal Normal mg/dL Urine Opiates Screen Neg NEGATIVE Urine Fentanyl Screen Neg NEGATIVE Urine Barbiturates Screen Neg NEGATIVE Urine Phencyclidine Screen Neg NEGATIVE Urine Amphetamines Screen Neg NEGATIVE Urine Benzodiazepines Screen Neg NEGATIVE Urine Cocaine Screen Neg NEGATIVE Urine Cannabinoids Screen Neg NEGATIVE Assessment Assessment 24yo IUP@39.2 Induction of labor for GDMA1 Blood glucose checks Q4 hours Category I EFM Intact membranes GBS negative Plan Plan Patient consented to CRB Cooks balloon placed with 60mL uterine, and 60mL vaginal of sterile water monitoring per order Pain management PRN Frequent position changes in bed encouraged Limit SVE unless necessary Intrauterine resuscitation PRN Anticipate Plan discussed with: Patient, Spouse, Other (family) Visit Coding OBGYN Date of Service: Feb 08, 2025 Billing Provider: SHIRA HATHAWAY DO MATCHER [employer] Common Visit Codes: [id number] INP/OBS CARE(HIGH) M[employer]ER [employer] Procedure Codes: 29858-33- NON-STRESS TEST BRUCE MONTGOMERY STUDENTMDW Feb 08, 2025 10:29
[2025-02-08] MEDS: LACT. RINGERS/OXYTOCIN 20UNITS 1,000 ML IV SCH (21:00)
[2025-02-09] MEDS ORDERED: ROPIVACAINE HCL 100 ML ONE ×2 (06:04→22:09)
[2025-02-09] MEDS: ROPIVACAINE HCL 100 ML ONE ×3 (06:05→22:11)
--- NOTE | 2025-02-09 06:20 | DVHPN2 ---
Chief Complaints Patient reports: No new complaints, Feels better Nursing reports: No new complaints, No abdominal pain, No chest pain, No dizziness, No cough Objective Vitals Vital Signs Date Time Temp Pulse Resp B/P (MAP) Pulse Ox O2 Delivery O2 Flow Rate FiO2 02/08/25 02:35 119/60 Medications Current Medications Medications (Trade) Dose Ordered Sig/Gelacio Route PRN Reason Start Time Stop Time Status Last Admin Oxytocin 1,000 ml @ 6 ml/hr Q24H IV 02/08/25 20:30 02/08/25 21:00 General: Normal Lungs: Normal Cardiovascular: Normal Abdominal: Normal Musculoskeletal: Normal Extremities: Normal Skin: Normal Neurological: Normal Studies Laboratory Tests 02/07/25 22:29 Test 02/07/25 22:29 Range/Units Serum Glucose 89 74-106 mg/dL Ass/Plan Assessment Induction 6 cm 70% -2 station Plan Expectant management SHIRA HATHAWAY DO Feb 09, 2025 06:20
--- NOTE | 2025-02-09 10:17 | DVHPN2 ---
CNM Labor Progress Note Date and Time Seen Date Seen: Feb 09, 2025 Time Seen: 09:55 Subjective Subjective Comment Pt c/o of vaginal and rectal pressure Objective Vital Signs VSS, see chart Monitoring Method Monitoring Method: External Heart Rate Heart Rate Baseline: 135 Heart Rate Variability: Moderate Presence of FHR Accelerations: Yes Presence of FHR Decelerations: No Are all 5 Components of the FH: Yes Contractions Contractions Frequency: Other (Q 2-3 min) Duration of Contraction: 90 Contractions Intensity: Moderate Contractions Resting Tone: Relaxed Membranes Membranes: Ruptured Amniotic Fluid Color: Clear Vaginal Exam Vag Exam Deferred: No Vaginal Exam Dilation: 6 Vaginal Exam Effacement: 90 Vaginal Exam Station: -1 Vaginal Exam Presentation: VTX Vaginal Exam Show: None Medications Medications - Pitocin: Yes (5 munits) Medications - Pain Medications: PRN Medication - Epidural: Yes Medication - Other s/p Cytotec PO x1 dose Lab Results Lab Results Vital Signs Date Time Temp Pulse Resp B/P (MAP) Pulse Ox O2 Delivery O2 Flow Rate FiO2 02/09/25 16:45 101.4 02/08/25 02:35 119/60 Current Medications Medications (Trade) Dose Ordered Sig/Gelacio Start Time Stop Time Status Last Admin Dose Admin Lactated Ringer's 1,000 ml @ 125 mls/hr Q8H 02/07/25 22:15 02/08/25 22:47 125 MLS/HR Nalbuphine HCl (Nubain) 10 mg Q4HP PRN 02/07/25 22:15 Nalbuphine HCl (Nubain) 10 mg Q4HP PRN 02/07/25 22:15 Diagnostic Test (Pha) (Accu-Chek Comfort Curve T) 1 strip Q4HR 02/08/25 02:00 Cody Saab (Tucks) 1 pad PRN PRN 02/07/25 22:15 02/08/25 01:12 1 PAD Sodium Lauryl Sulfate (Phisoderm) 240 ml PRN PRN 02/07/25 22:15 02/08/25 01:12 240 ML Benzocaine (Dermoplast) 1 applic PRN PRN 02/07/25 22:15 02/08/25 01:12 1 APPLIC Lidocaine HCl (Xylocaine) 20 ml ONCE PRN 02/07/25 22:15 Naloxone HCl (Narcan) 0.2 mg PRN ONCE 02/07/25 23:45 02/07/25 23:46 DC Ephedrine Sulfate (ePHEDrine SULFATE) 10 mg PRN ONCE 02/07/25 23:45 02/07/25 23:46 DC Fentanyl Citrate 200 mcg ONCE ONCE 02/07/25 23:45 02/07/25 23:46 DC 02/08/25 02:35 200 MCG Lactated Ringer's 1,000 ml @ 1,000 mls/hr Q1H ONCE 02/07/25 23:45 02/08/25 00:44 DC 02/08/25 05:54 1,000 MLS/HR Misoprostol (Cytotec) 50 mcg Q4HPRN PRN 02/08/25 00:45 02/08/25 01:12 50 MCG Oxytocin 1,000 ml @ 6 ml/hr Q24H 02/08/25 20:30 02/08/25 21:00 6 ML/HR Oxytocin 500 ml @ 999 mls/hr Q31M ONCE 02/08/25 20:30 02/08/25 21:00 DC Oxytocin 500 ml @ 125 mls/hr Q4H ONCE 02/08/25 21:00 02/09/25 00:59 DC Diphenhydramine HCl (Benadryl Injection) 50 mg ONCE ONCE 02/09/25 14:45 02/09/25 14:52 DC 02/09/25 15:08 50 MG Cefazolin Sodium/ Dextrose 50 ml @ 50 mls/hr ONCE ONCE 02/09/25 15:30 02/09/25 16:29 DC 02/09/25 16:45 50 MLS/HR Cefazolin Sodium 50 ml @ 100 mls/hr Q8HR 02/09/25 23:30 Acetaminophen (Tylenol Tablet) 650 mg ONCE ONCE 02/09/25 15:30 02/09/25 15:54 DC 02/09/25 16:45 650 MG Diphenhydramine HCl (Benadryl Injection) 50 mg ONCE ONCE 02/09/25 19:15 02/09/25 19:17 DC 02/09/25 19:24 50 MG Laboratory Tests Test 02/09/25 18:41 02/07/25 22:29 02/07/25 22:21 Range/Units POC Glucose 72 70-106 mg/dl White Blood Count 10.2 4.4-10.8 10^3/uL Red Blood Count 4.30 4.0-5.20 10^6/uL Hemoglobin 12.9 12.2-16.2 g/dL Hematocrit 37.8 36.0-46.0 % Mean Corpuscular Volume 87.8 80.0-100.0 fL Mean Corpuscular Hemoglobin 30.0 28.0-32.0 pg Mean Corpuscular Hemoglobin Concent 34.2 32.0-36.0 g/dL Red Cell Distribution Width 14.3 11.8-14.3 % Platelet Count 303 140-450 10^3/uL Mean Platelet Volume 7.7 6.9-10.8 fL Neutrophils (%) (Auto) 62.8 37.0-80.0 % Lymphocytes (%) (Auto) 23.8 10.0-50.0 % Monocytes (%) (Auto) 10.8 0.0-12.0 % Eosinophils (%) (Auto) 2.1 0.0-7.0 % Basophils (%) (Auto) 0.5 0.0-2.0 % Neutrophils # (Auto) 6.4 1.6-8.6 10 ^3/uL Lymphocytes # (Auto) 2.4 0.4-5.4 10 ^3/uL Monocytes # (Auto) 1.1 0-1.3 10 ^3/uL Eosinophils # (Auto) 0.2 0-0.8 10 ^3/uL Basophils # (Auto) 0.1 0-0.2 10 ^3/uL Nucleated Red Blood Cells 0.0 % Prothrombin Time 9.8 9.3-11.8 sec Prothrombin Time INR 0.92 0.9-1.15 Activated Partial Thromboplast Time 25.4 24.5-34.5 SEC Sodium Level 138 136-145 mmol/L Potassium Level 4.2 3.5-5.1 mmol/L Chloride Level 107 98-107 mmol/L Carbon Dioxide Level 20 20-31 mmol/L Anion Gap 11 5-15 Blood Urea Nitrogen 6 L 9-23 mg/dL Creatinine 0.45 L 0.550-1.02 mg/dL Glomerular Filtration Rate Calc 139 >90 mL/min BUN/Creatinine Ratio 13.3 10.0-20.0 Serum Glucose 89 74-106 mg/dL Calcium Level 9.7 8.7-10.4 mg/dL Total Bilirubin 0.5 0.2-1.0 mg/dL Aspartate Amino Transferase (AST) 16 13-40 U/L Alanine Aminotransferase (ALT) < 9 7-40 U/L Alkaline Phosphatase 208 H 46-116 U/L Total Protein 6.9 5.7-8.2 g/dL Albumin 4.2 3.2-4.8 g/dL Treponema pallidum Antibody Non-reactive Negative Hepatitis C Antibody Negative Negative Urine Color Colorless Yellow Urine Clarity Clear Clear Urine pH 6.0 5.0-9.0 Urine Specific [place] 1.006 1.001-1.035 Urine Protein Negative Negative Urine Ketones Negative Negative Urine Blood Negative Negative /uL Urine Nitrite Negative Negative Urine Bilirubin Negative Negative Urine Urobilinogen Normal Negative mg/dL Urine Leukocyte Esterase Negative Negative /uL Urine RBC None seen 0 - 4 /hpf Urine Microscopic WBC < 1 0-5 /HPF Urine Squamous Epithelial Cells Few <5 /hpf Urine Bacteria Few H None Seen /hpf Urine Glucose Normal Normal mg/dL Urine Opiates Screen Neg NEGATIVE Urine Fentanyl Screen Neg NEGATIVE Urine Barbiturates Screen Neg NEGATIVE Urine Phencyclidine Screen Neg NEGATIVE Urine Amphetamines Screen Neg NEGATIVE Urine Benzodiazepines Screen Neg NEGATIVE Urine Cocaine Screen Neg NEGATIVE Urine Cannabinoids Screen Neg NEGATIVE Assessment Assessment 24yo IUP@39.3 Induction of labor for GDMA1 Category I EFM AROM, clear GBS negative Plan Plan monitoring per order Epidural in place Frequent position changes in bed encouraged Limit SVE unless necessary Intrauterine resuscitation PRN Anticipate Plan discussed with: Patient, Other (family) Visit Coding OBGYN Date of Service: Feb 09, 2025 Billing Provider: SHIRA HATHAWAY DO RETAIL OPERATIONS SPECIALIST Common Visit Codes: [id number] INP/OBS CARE(HIGH) RETAIL OPERATIONS SPECIALIST Procedure Codes: 33656-91- NON-STRESS TEST BRUCE MONTGOMERYMDW Feb 09, 2025 10:17
--- NOTE | 2025-02-09 11:32 | EPIDURAL ---
Anesthesia Procedural Note - Epidural Date: Feb 09, 2025 Informed consent obtained?: Yes Procedure description Procedure description: Called to patient bedside to evaluate patient due to reports of increasing pain. Arrive at bedside, patient is on right side and complains of increasing pain in butt, vagina, and lower abdomen. Dressing is removed to evaluate catheter. Catheter is at about 9 cm at skin. May have come out a bit but is still giving some relief. Decision is made to redress the site and adjust infusion rate with a bolus (5 ml 0.2% Ropivicaine bolus off pump and increased rate to 14 ml/hr with 3 ml patient administered bolus with 10 min lockout and 6 per hour). Discussed with patient this plan and that may need to replace the catheter. Patient understands this plan. Will reevaluate shortly. GISELL HINES CRNA Feb 09, 2025 11:32
[2025-02-09] MEDS: diphenhdrAMINE HCL 50 MG/1 ML VL IV ONE ×2 (15:08→19:24)
[2025-02-09] MEDS ORDERED: ACETAMINOPHEN 325 MG TAB PO ONE (15:49)
[2025-02-09] MEDS: ACETAMINOPHEN 325 MG TAB PO ONE (16:45)
[2025-02-09] MEDS: ceFAZolin 2 GM/D5W50ml 50 ML IV ONE (16:45)
--- NOTE | 2025-02-09 20:01 | DVHPN2 ---
CNM Labor Progress Note Date and Time Seen Date Seen: Feb 09, 2025 Time Seen: 18:30 Subjective Subjective Comment Pt c/o hip pain Objective Vital Signs VSS, see chart Monitoring Method Monitoring Method: External Heart Rate Heart Rate Baseline: 140 Heart Rate Variability: Moderate Presence of FHR Accelerations: Yes Presence of FHR Decelerations: No Are all 5 Components of the FH: Yes Contractions Contractions Frequency: Occasional (Q 5 min) Duration of Contraction: 120 Contractions Intensity: Moderate Contractions Resting Tone: Relaxed Membranes Membranes: Ruptured (AROM @ 0807) Amniotic Fluid Color: Clear Vaginal Exam Vag Exam Deferred: Yes Vaginal Exam Dilation: 8 (cervical swelling) Vaginal Exam Effacement: 90 Vaginal Exam Station: 0 Vaginal Exam Presentation: VTX Vaginal Exam Show: None Medications Medications - Pitocin: No (IV Oxytocin was turned off at 1308) Medications - Pain Medications: PRN Medication - Epidural: Yes Medication - Other s/p Cytotec PO x1 dose Lab Results Lab Results Vital Signs Date Time Temp Pulse Resp B/P (MAP) Pulse Ox O2 Delivery O2 Flow Rate FiO2 02/09/25 16:45 101.4 02/08/25 02:35 119/60 Current Medications Medications (Trade) Dose Ordered Sig/Gelacio Start Time Stop Time Status Last Admin Dose Admin Lactated Ringer's 1,000 ml @ 125 mls/hr Q8H 02/07/25 22:15 02/08/25 22:47 125 MLS/HR Nalbuphine HCl (Nubain) 10 mg Q4HP PRN 02/07/25 22:15 Nalbuphine HCl (Nubain) 10 mg Q4HP PRN 02/07/25 22:15 Diagnostic Test (Pha) (Accu-Chek Comfort Curve T) 1 strip Q4HR 02/08/25 02:00 Witelena Saab (Tucks) 1 pad PRN PRN 02/07/25 22:15 02/08/25 01:12 1 PAD Sodium Lauryl Sulfate (Phisoderm) 240 ml PRN PRN 02/07/25 22:15 02/08/25 01:12 240 ML Benzocaine (Dermoplast) 1 applic PRN PRN 02/07/25 22:15 02/08/25 01:12 1 APPLIC Lidocaine HCl (Xylocaine) 20 ml ONCE PRN 02/07/25 22:15 Naloxone HCl (Narcan) 0.2 mg PRN ONCE 02/07/25 23:45 02/07/25 23:46 DC Ephedrine Sulfate (ePHEDrine SULFATE) 10 mg PRN ONCE 02/07/25 23:45 02/07/25 23:46 DC Fentanyl Citrate 200 mcg ONCE ONCE 02/07/25 23:45 02/07/25 23:46 DC 02/08/25 02:35 200 MCG Lactated Ringer's 1,000 ml @ 1,000 mls/hr Q1H ONCE 02/07/25 23:45 02/08/25 00:44 DC 02/08/25 05:54 1,000 MLS/HR Misoprostol (Cytotec) 50 mcg Q4HPRN PRN 02/08/25 00:45 02/08/25 01:12 50 MCG Oxytocin 1,000 ml @ 6 ml/hr Q24H 02/08/25 20:30 02/08/25 21:00 6 ML/HR Oxytocin 500 ml @ 999 mls/hr Q31M ONCE 02/08/25 20:30 02/08/25 21:00 DC Oxytocin 500 ml @ 125 mls/hr Q4H ONCE 02/08/25 21:00 02/09/25 00:59 DC Diphenhydramine HCl (Benadryl Injection) 50 mg ONCE ONCE 02/09/25 14:45 02/09/25 14:52 DC 02/09/25 15:08 50 MG Cefazolin Sodium/ Dextrose 50 ml @ 50 mls/hr ONCE ONCE 02/09/25 15:30 02/09/25 16:29 DC 02/09/25 16:45 50 MLS/HR Cefazolin Sodium 50 ml @ 100 mls/hr Q8HR 02/09/25 23:30 Acetaminophen (Tylenol Tablet) 650 mg ONCE ONCE 02/09/25 15:30 02/09/25 15:54 DC 02/09/25 16:45 650 MG Diphenhydramine HCl (Benadryl Injection) 50 mg ONCE ONCE 02/09/25 19:15 02/09/25 19:17 DC 02/09/25 19:24 50 MG Laboratory Tests Test 02/09/25 18:41 02/07/25 22:29 02/07/25 22:21 Range/Units POC Glucose 72 70-106 mg/dl White Blood Count 10.2 4.4-10.8 10^3/uL Red Blood Count 4.30 4.0-5.20 10^6/uL Hemoglobin 12.9 12.2-16.2 g/dL Hematocrit 37.8 36.0-46.0 % Mean Corpuscular Volume 87.8 80.0-100.0 fL Mean Corpuscular Hemoglobin 30.0 28.0-32.0 pg Mean Corpuscular Hemoglobin Concent 34.2 32.0-36.0 g/dL Red Cell Distribution Width 14.3 11.8-14.3 % Platelet Count 303 140-450 10^3/uL Mean Platelet Volume 7.7 6.9-10.8 fL Neutrophils (%) (Auto) 62.8 37.0-80.0 % Lymphocytes (%) (Auto) 23.8 10.0-50.0 % Monocytes (%) (Auto) 10.8 0.0-12.0 % Eosinophils (%) (Auto) 2.1 0.0-7.0 % Basophils (%) (Auto) 0.5 0.0-2.0 % Neutrophils # (Auto) 6.4 1.6-8.6 10 ^3/uL Lymphocytes # (Auto) 2.4 0.4-5.4 10 ^3/uL Monocytes # (Auto) 1.1 0-1.3 10 ^3/uL Eosinophils # (Auto) 0.2 0-0.8 10 ^3/uL Basophils # (Auto) 0.1 0-0.2 10 ^3/uL Nucleated Red Blood Cells 0.0 % Prothrombin Time 9.8 9.3-11.8 sec Prothrombin Time INR 0.92 0.9-1.15 Activated Partial Thromboplast Time 25.4 24.5-34.5 SEC Sodium Level 138 136-145 mmol/L Potassium Level 4.2 3.5-5.1 mmol/L Chloride Level 107 98-107 mmol/L Carbon Dioxide Level 20 20-31 mmol/L Anion Gap 11 5-15 Blood Urea Nitrogen 6 L 9-23 mg/dL Creatinine 0.45 L 0.550-1.02 mg/dL Glomerular Filtration Rate Calc 139 >90 mL/min BUN/Creatinine Ratio 13.3 10.0-20.0 Serum Glucose 89 74-106 mg/dL Calcium Level 9.7 8.7-10.4 mg/dL Total Bilirubin 0.5 0.2-1.0 mg/dL Aspartate Amino Transferase (AST) 16 13-40 U/L Alanine Aminotransferase (ALT) < 9 7-40 U/L Alkaline Phosphatase 208 H 46-116 U/L Total Protein 6.9 5.7-8.2 g/dL Albumin 4.2 3.2-4.8 g/dL Treponema pallidum Antibody Non-reactive Negative Hepatitis C Antibody Negative Negative Urine Color Colorless Yellow Urine Clarity Clear Clear Urine pH 6.0 5.0-9.0 Urine Specific [place] 1.006 1.001-1.035 Urine Protein Negative Negative Urine Ketones Negative Negative Urine Blood Negative Negative /uL Urine Nitrite Negative Negative Urine Bilirubin Negative Negative Urine Urobilinogen Normal Negative mg/dL Urine Leukocyte Esterase Negative Negative /uL Urine RBC None seen 0 - 4 /hpf Urine Microscopic WBC < 1 0-5 /HPF Urine Squamous Epithelial Cells Few <5 /hpf Urine Bacteria Few H None Seen /hpf Urine Glucose Normal Normal mg/dL Urine Opiates Screen Neg NEGATIVE Urine Fentanyl Screen Neg NEGATIVE Urine Barbiturates Screen Neg NEGATIVE Urine Phencyclidine Screen Neg NEGATIVE Urine Amphetamines Screen Neg NEGATIVE Urine Benzodiazepines Screen Neg NEGATIVE Urine Cocaine Screen Neg NEGATIVE Urine Cannabinoids Screen Neg NEGATIVE Assessment Assessment 24yo IUP@39.3 Induction of labor for GDMA1 Category I EFM AROM, clear GBS negative Plan Plan Side lying release done Discussed the possibility of starting an amnioinfusion with patient monitoring per order Epidural in place Frequent position changes in bed encouraged Limit SVE unless necessary Intrauterine resuscitation PRN Supportive care Anticipate Plan discussed with: Patient, Other (Family) Visit Coding OBGYN Date of Service: Feb 09, 2025 Billing Provider: SHIRA HATHAWAY DO MALT HOUSE SUPERVISOR Common Visit Codes: [id number] INP/OBS CARE(HIGH) MALT HOUSE SUPERVISOR Procedure Codes: 71333-91- NON-STRESS TEST BRUCE MONTGOMERY STUDENTMDW Feb 09, 2025 20:01
[2025-02-09] MEDS ORDERED: METHYLERGONOVINE MALEATE 0.2 MG/ML AMP IM PRN (21:00)
[2025-02-09] MEDS ORDERED: ceFAZolin 1GM/50ML 50 ML IV SCH (23:30)
[2025-02-10] MEDS: LIDOCAINE 2%HCL (LOCAL ANESTH.) INJ 20ML MDV ONE (00:40)
[2025-02-10] MEDS: LIDOCAINE 2%HCL (LOCAL ANESTH.) INJ 20ML MDV IJ PRN (01:12)
[2025-02-10] MEDS: LACT. RINGERS/OXYTOCIN 20UNITS 500 ML IV ONE ×2 (01:14→01:15)
[2025-02-10] MEDS ORDERED: LIDOCAINE HCL 2 %PF INJ 10ML AMP IJ ONE (01:30)
--- NOTE | 2025-02-10 01:37 | LDN2 ---
CHASITY MONTGOMERY STUDENTMDW 02/10/25 0137: Labor and Delivery Note Date 02/10/25 Age 24 1 Para now 1 AB 0 EDC 02/13/2025 EGA 39.4 weeks Diagnosis Shoulder dystocia Vaginal Delivery: VTX Vacuum Assisted: No Placenta: Spontaneous Sex: Female Weight pending Nuchal Cord Transected: No Amniotic Fluid: Clear Anesthesia epidural and local Episiotomy: No Extension: No Repaired with [address] and SH EBL QBL 275 mL Labs Laboratory Tests 08/11/24 10:10: Hepatitis B Surface Antigen Negative, HIV (1&2) Antibody Negative Blood Bank 02/07/25 22:29: Blood Type A POSITIVE Conditions Stable Quality Control Director Somu Comments/Significant Med Kan At 0027 this 24yo now delivered a viable Female infant by w/ APGARS 2/3/5/7. The head delivered at 0024 and the chin was noted tightly against the perineum. Gentle downad traction failed to deiver the anterior shoulder, and a code for shoulder dystocia was called. Osiel maneuver and suprapubic pressure applied, and delivery of the anterior arm was achieved with gentle traction. The delivered successfully at 0027 by PAYAM presentation and loose Nuchal x1, and cord reduced before . placed skin to skin on pts chest. RT called to bedside STAT. Cord clamped and cut immediately and taken to warmer. Cord gasses collected. Cord blood sent. Pitocin IV bolus started. Intact 3-vessel cord placenta delivered spontaneously, Sarah. Placenta sent to pathology. Quality Control Director at bedside at 0050. Patient had epidural and local anesthesia. Cervix/vagina inspected (intact) and first degree perineal laceration present which was repaired with [address] and SH suture. Fundus at U, firm, midline, and light lochia. QBL 275ml. VSS. Count correct x2. Patient to care and baby to nursery. Both stable. Visit Coding OBGYN Date of Service: Feb 10, 2025 Billing Provider: SHIRA HATHAWAY DO PHOTOGRAPHIC ENGINEER Common Visit Codes: [id number] INP/OBS CARE(HIGH) PHOTOGRAPHIC ENGINEER Procedure Codes: [id number]-[id number] DELIVERY ONLY SHIRA HATHAWAY DO 02/10/25 0618: Labor and Delivery Note Comments/Significant Med Kan I supervised Chasity Montgomery's delivery of infant appropriate techniques used for shoulder dystocia. Dr Hathaway Ob/ Corporate Treasurer Visit Coding OBGYN Date of Service: Feb 10, 2025 Billing Provider: SHIRA HATHAWAY DO PHOTOGRAPHIC ENGINEER Common Visit Codes: [id number] INP/OBS CARE(HIGH) PHOTOGRAPHIC ENGINEER Procedure Codes: 33251-[id number] DEL INCLUDING CHASITY MONTGOMERY STUDENTMDW Feb 10, 2025 01:37 SHIRA HATHAWAY DO Feb 10, 2025 06:18
[2025-02-10 02:56] VITALS: BP 116/56; PULSE 68; RESP 18; TEMP 98.7; O2SAT 98
[2025-02-10] MEDS: IBUPROFEN 600 MG TAB PO PRN (05:57)
[2025-02-10 07:01] VITALS: BP 107/54; PULSE 75; RESP 18; TEMP 97.8; O2SAT 99
[2025-02-10] MEDS: ACETAMINOPHEN 325 MG TAB PO PRN (08:40)
[2025-02-10 11:00] VITALS: BP 110/62; PULSE 79; RESP 18; TEMP 98.3; O2SAT 98
[2025-02-10 15:00] VITALS: BP 115/72; PULSE 82; RESP 18; TEMP 98.4; O2SAT 98
[2025-02-10] MEDS: DOCUSATE SOD 100 MG CAP PO ONE (15:43)
[2025-02-10] MEDS ORDERED: DOCU-94 PO (16:58)
[2025-02-10] MEDS ORDERED: IBU600T PO (16:58)
[2025-02-10] MEDS ORDERED: PREN-96 PO (16:58)
--- NOTE | 2025-02-10 16:59 | DVHPN2 ---
Progress Note Date Seen: Feb 10, 2025 Subjective S: Pt really wants to be discharged to go see her baby in NICU at the other hospital. bleeding is less, eating food without issues, denies lightheaded/dizziness, pain well controlled with oral medications, no concerns with urinating, passing flatus, no BM yet, ambulating well, pumping vital signs Vital Sign Date Time Temp Pulse Resp B/P (MAP) Pulse Ox O2 Delivery O2 Flow Rate FiO2 02/10/25 15:00 98.4 82 18 115/72 (86) 98 98.4 02/10/25 07:01 Room Air Total Intake and Output 02/09/25 02/09/25 02/10/25 14:59 22:59 06:59 Output Total 1200 ml Balance -1200 ml medications Current Medications Medications Dose Ordered Sig/Gelacio Route Start Time Stop Time Status Last Admin Dose Admin Lactated Ringer's 1,000 ml @ 125 mls/hr Q8H IV 02/07/25 22:15 02/08/25 22:47 125 MLS/HR Nalbuphine HCl 10 mg Q4HP PRN IM 02/07/25 22:15 Nalbuphine HCl 10 mg Q4HP PRN IV 02/07/25 22:15 Diagnostic Test (Pha) 1 strip Q4HR 02/08/25 02:00 Cody Saab 1 pad PRN PRN TOP 02/07/25 22:15 02/08/25 01:12 1 PAD Sodium Lauryl Sulfate 240 ml PRN PRN TOP 02/07/25 22:15 02/08/25 01:12 240 ML Benzocaine 1 applic PRN PRN TOP 02/07/25 22:15 02/08/25 01:12 1 APPLIC Lidocaine HCl 20 ml ONCE PRN IJ 02/07/25 22:15 02/10/25 04:22 20 ML Methylergonovine Maleate 0.2 mg Q8HP PRN IM 02/09/25 21:00 02/11/25 20:59 Ibuprofen 600 mg Q6HP PRN PO 02/10/25 04:30 02/10/25 12:08 600 MG Acetaminophen 650 mg Q4HP PRN PO 02/10/25 04:30 02/10/25 08:40 650 MG Docusate Sodium 200 mg HS PO 02/10/25 22:00 Cancel laboratory and microbiology Laboratory Tests 02/07/25 22:29 Test 02/07/25 22:29 Range/Units Serum Glucose 89 74-106 mg/dL Objective O: VSS, afebrile for 24 hours Chest: heart sounds normal and lung sounds clear bilaterally Abd: soft, non-tender, fundus at U/firm/midline, active bowel sounds, no rebound or guarding Perineum: sutures intact, edges well approximated, no erythema/edema noted Ext: Non-tender, No edema, 2+ BLE DTRs Lochia: minimal See lab results Problems(with codes): (1) First degree perineal laceration during delivery (2) (normal spontaneous vaginal delivery) Assessment/Plan A: 24yo now PPD#0 s/p Rh+ Rubella Immune Pumping breast milk, baby in NICU P: D/C home today Rx sent to pharmacy precautions and preeclampsia warning signs reviewed F/U with [facility] office in 2 weeks Plan discussed with: Patient, Other (Family) Visit Coding OBGYN Date of Service: Feb 10, 2025 Billing Provider: GLORIA KHAN CNM [employer] Common Visit Codes: [id number] INP/OBS CARE(MOD) GLORIA KHAN CNM Feb 10, 2025 16:59
--- NOTE | 2025-02-10 17:00 | DVHDS2 ---
Obstetrics Discharge Summary Obstetrics Discharge Summary Date of Admission: Feb 08, 2025 Date of Discharge: Feb 10, 2025 Reason For Admission: Induction of Labor Procedures: NST, Mgmt of Obstetrics Compli (GDM, A1) Intrapartum Procedures: Spontaneous vaginal deliv Procedures: None Operative Complicat: Laceration (first degree perineal laceration) Discharge Diagnosis: Term -Delivered Discharge Information: Activity (as tolerated, no heavy lifting and nothing in the vagina for 6 weeks), Diet (Routine), Medications (Rx sent), Instructions (Routine), Discharge to (home), Accompanied by (partner), Discarge date (02/10/25) Visit Coding OBGYN Date of Service: Feb 10, 2025 Billing Provider: GLORIA KHAN CNM [employer] Common Visit Codes: 84877-FZI/[id number] DISCH DAY <30MIN GLORIA KHAN CNM Feb 10, 2025 17:00
[2025-02-10] MEDS ORDERED: DOCUSATE SOD 100 MG CAP PO SCH (22:00)
== END 2025-02-10 18:00 | disposition home or self-care (01) | DRG 560 ==
LOC: LDRP 22:01
PROVIDERS: ADMIT Obstetrics & Gynecology; ATTEND Obstetrics & Gynecology
PROC: 3E0R3BZ Introduction of Anesthetic Agent into Spinal Canal, Percutaneous Approach (ICD-10-PCS; 2025-02-09)
PROC: 00HU33Z Insertion of Infusion Device into Spinal Canal, Percutaneous Approach (ICD-10-PCS; 2025-02-09)
PROC: 10E0XZZ Delivery of Products of Conception, External Approach (ICD-10-PCS; principal; 2025-02-10)
PROC: 0HQ9XZZ Repair Perineum Skin, External Approach (ICD-10-PCS; 2025-02-10)
PROC: 0U7C7DJ Dilation of Cervix with Intraluminal Device, Temporary, Via Natural or Artificial Opening (ICD-10-PCS; 2025-02-10)
PROC: 3E0DXGC Introduction of Other Therapeutic Substance into Mouth and Pharynx, External Approach (ICD-10-PCS; 2025-02-10)
DX: O24.420 Gestational diabetes mellitus in childbirth, diet controlled (principal); Z37.0 Single live birth; O66.0 Obstructed labor due to shoulder dystocia; O70.0 First degree perineal laceration during delivery; Z3A.39 39 weeks gestation of pregnancy; Z91.040 Latex allergy status; O69.81X0 Labor and delivery complicated by cord around neck, without compression, not applicable or unspecified
CPT/HCPCS: 36415; 59025; 59200; 59409; 62282; 80053; 80307; 81001; 82948; 82962; 85025; 85610; 85730; 86780; 86803; 86850; 86900; 86901; 94760; 94762; 96360; 96361; 96365; 96366; 96374; 96375; G0378; J2590